=== PATIENT | female | born 1980 | race Two or more races ===

== ENCOUNTER 2018-05-27 12:08 | Emergency (ER) | payer MEDICAID ==
[~2018-05-27] VITALS: Ht 160 cm; Wt 72.6 kg
[2018-05-27] MEDS ORDERED: NKM (12:28)
[2018-05-27 12:59] LABS: APPEARANCE,URINE SLIGHTLY CLOUDY; BILIRUBIN, URINE NEGATIVE (NEGATIVE); COLOR,URINE PALE YELLOW; GLUCOSE, URINE (UA) NEGATIVE (NEGATIVE); KETONES,URINE NEGATIVE (NEGATIVE); LEUKOCYTE ESTERASE ,URINE 1+ (NEGATIVE); NITRITE,URINE POSITIVE (NEGATIVE); PH,URINE 7 (4.5-8.0); PROTEIN,URINE 3+ (NEGATIVE); UROBILINOGEN,URINE NORMAL MG/DL (0.0-1.0)
[2018-05-27 13:00] LABS: BASOPHILS % (AUTO) 0.5 % (0.0-2.0); EOSINOPHILS % (AUTO) 0.5 % (0.0-3.0); HEMATOCRIT 38.3 % (37.0-47.0); HEMOGLOBIN 12.7 G/DL (12.0-16.0); LYMPHOCYTES % (AUTO) 20.1 % (20.0-45.0); MEAN CORPUSCULAR VOLUME 86 FL (80-99); MONOCYTES % (AUTO) 5.9 % (1.0-10.0); NEUTROPHILS % (AUTO) 72.9 % (45.0-75.0); PLATELET COUNT 338 K/UL (150-450); RED BLOOD COUNT 4.43 M/UL (4.20-5.40); RED CELL DISTRIBUTION WIDTH 11.9 % (11.6-14.8); WHITE BLOOD COUNT 11.2 K/UL (4.8-10.8)
--- NOTE | 2018-05-27 13:04 | Emergency Room Report ---
History of Present Illness General Chief Complaint: General Complaint Source: Patient Present Illness HPI 38-year-old female with no significant past medical history presents today with 1 week of dizziness, and numbness in both hands and the back of her neck. Patient reports that she has been continuously bleeding since her menses started one month ago reports changing her pad multiple times during the day and clotting. Denies sexual activity. Patient reports intermittent palpitation , denies chest pain and sob. Denies abdominal pain, nausea vomiting, diarrhea constipation. denies vision changes patient does not take any medications daily basis patient further reports that she has increased anxiety denies SI denies and HI Allergies: Coded Allergies: PENICILLINS (Verified Allergy, Unknown, 05/27/18) Patient History Past Medical History: see triage record Pertinent Family History: none Last Menstrual Period: on period Now: No Immunizations: UTD Reviewed Nursing Documentation: PMH: Agreed; PSxH: Agreed Nursing Documentation-PMH Past Medical History: No History, Except For Hx Gastrointestinal Problems: Yes Review of Systems All Other Systems: negative except mentioned in HPI Physical Exam Vital Signs Date Time Temp Pulse Resp B/P (MAP) Pulse Ox O2 Delivery O2 Flow Rate FiO2 05/27/18 12:24 98.5 68 16 126/74 99 Room Air 98.4 Sp02 EP Interpretation: reviewed, normal General Appearance: normal inspection, well appearing, no apparent distress, alert, GCS 15 Head: normocephalic, atraumatic Eyes: bilateral eye normal inspection, bilateral eye PERRL ENT: normal ENT inspection, hearing grossly normal, normal pharynx, no angioedema Neck: normal inspection, full range of motion, supple Respiratory: normal inspection, chest non-tender, normal breath sounds, no rhonchi, no wheezing Cardiovascular #1: normal inspection, no edema, no murmur Cardiovascular #2: 2+ radial (R), 2+ radial (L) Gastrointestinal: normal inspection, non tender, soft Rectal: deferred Genitourinary: deferred Musculoskeletal: normal inspection, back normal Neurologic: normal inspection, alert, oriented x3 Psychiatric: normal inspection, judgement/insight normal, memory normal Skin: normal inspection, normal color, no rash, warm/dry Lymphatic: normal inspection, no adenopathy, axilla node tender (R) Medical Decision Making PA Attestation all dx and tx plans were reviewed and discussed with my supervising physician Dr. Avelar Diagnostic Impression: Primary Impression: UTI (urinary tract infection) Additional Impressions: Anxiety Irregular menstrual bleeding ER Course 38-year-old female with no significant past medical history presents today with 1 week of dizziness, and numbness in both hands and the back of her neck. Patient reports that she has been continuously bleeding since her menses started one month ago reports changing her pad multiple times during the day and clotting. Denies sexual activity. Patient reports intermittent palpitation , denies chest pain and sob. Denies abdominal pain, nausea vomiting, diarrhea constipation. denies vision changes patient does not take any medications daily basis patient further reports that she has increased anxiety denies SI denies and HI Ddx considered but are not limited to anemia, electrolyte imbalance, anxiety, irregular menses Vital signs: are WNL, pt. is afebrile H&PE are most consistent with UTI, anxiety ORDERS: EKG, UA, CBC, CMP ED INTERVENTIONS: None required at this time. DISCHARGE: At this time pt. is stable for d/c to home. Will provide printed patient care instructions, and any necessary prescriptions. Care plan and follow up instructions have been discussed with the patient prior to discharge. patient is a medication as directed and follow with primary care provider regarding anxiety also follow with the primary care provider regarding irregular menses Positive nitrites and leuks and UA, white blood cell elevated and CBC Rhythm Strip Diag. Results EP Interpretation: yes Rhythm: no PVC's, no ectopy, other - bradycardia Last Vital Signs Date Time Temp Pulse Resp B/P (MAP) Pulse Ox O2 Delivery O2 Flow Rate FiO2 05/27/18 12:24 98.5 68 16 126/74 99 Room Air 98.4 Disposition: HOME, SELF-CARE Condition: Stable Scripts Nitrofurantoin Monohyd/M-Cryst* (MACROBID 100 MG*) 100 Mg Capsule 100 MG ORAL EVERY 12 HOURS for 7 Days, #14 CAP Prov: Marylou Muñoz 05/27/18 Patient Instructions: Abnormal Uterine Bleeding, Generalized Anxiety Disorder, Urinary Tract Infection, [id number] Additional Instructions: follow with a primary care provider regarding anxiety assessment as tingling and numbness in hands and the back of neck is due to anxiety, take medication as directed for UTI also follow with a primary care provider for irregular menstruation Marylou Muñoz May 27, 2018 13:04
[2018-05-27 13:22] LABS: ANION GAP 9 mmol/L (5-15); BLOOD UREA NITROGEN 11 mg/dL (7-18); CALCIUM 9.8 MG/DL (8.5-10.1); CARBON DIOXIDE 26 MMOL/L (21-32); CHLORIDE 107 MMOL/L (98-107); CREATININE 0.8 MG/DL (0.55-1.30); POTASSIUM 3.6 MMOL/L (3.5-5.1); SODIUM 142 MMOL/L (136-145)
[2018-05-27 13:27] LABS: ALANINE AMINOTRANSFERASE 21 U/L (12-78); ALBUMIN 3.6 G/DL (3.4-5.0); ALBUMIN/GLOBULIN RATIO 0.9 (1.0-2.7); ALKALINE PHOSPHATASE 103 U/L (46-116); ASPARTATE AMINO TRANSFERASE 11 U/L (15-37); BILIRUBIN,TOTAL 0.5 MG/DL (0.2-1.0)
[2018-05-27] MEDS ORDERED: NITROFURANTOIN100 M2 ORAL (13:37)
[2018-05-27 13:45] VITALS: BP 131/84
[2018-05-27 13:46] VITALS: BP 126/74
--- NOTE | 2018-05-29 14:25 | Cardiology Report ---
APPROVED REPORT EKG Measurement Heart [id number] Sinus bradycardia Otherwise normal ECG
== END 2018-05-27 13:46 | disposition home or self-care (01) ==
LOC: EMR 12:48
DX: N39.0 Urinary tract infection, site not specified (principal); F41.9 Anxiety disorder, unspecified; N92.6 Irregular menstruation, unspecified; Z88.0 Allergy status to penicillin; R42 Dizziness and giddiness
CPT/HCPCS: 36415; 80053; 81001; 85025; 87086; 87181; 93005; 99283

== ENCOUNTER 2018-06-08 09:12 | Emergency (ER) | payer MEDICAID ==
[~2018-06-08] VITALS: Ht 162.6 cm; Wt 79.4 kg
[~2018-06-08 09:12] MED LIST: NITROFURANTOIN100 M2 ORAL; NKM
[2018-06-08 09:22] VITALS: BP 121/81
[2018-06-08] MEDS ORDERED: Lidocaine 2% Visc 15ml soln ORAL ONE (09:30)
[2018-06-08] MEDS ORDERED: Mylanta II UD 30ml ORAL ONE (09:30)
[2018-06-08] MEDS ORDERED: Dicyclomine HCl 10mg/5ml oral soln ORAL ONE (09:30)
--- NOTE | 2018-06-08 09:45 | Emergency Room Report ---
History of Present Illness General Chief Complaint: Abdominal Pain Source: Patient Present Illness HPI 38-year-old female presents ED complaining of abdominal pain with nausea and vomiting 2 days. Pain is epigastric, burning, 8 out of 10, nonradiating. Notes also episodes of vomiting. Denies chest pain or shortness of breath. Denies fevers or chills. Denies dysuria or hematuria. No other aggravating relieving factors. Denies any other associated symptoms Allergies: Coded Allergies: PENICILLINS (Verified Allergy, Unknown, 05/27/18) Patient History Past Medical History: GERD Past Surgical History: none Pertinent Family History: none Social History: Denies: smoking, alcohol use, drug use Now: No Immunizations: UTD Reviewed Nursing Documentation: PMH: Agreed; PSxH: Agreed Nursing Documentation-PMH Hx Gastrointestinal Problems: Yes Review of Systems All Other Systems: negative except mentioned in HPI Physical Exam Vital Signs Date Time Temp Pulse Resp B/P (MAP) Pulse Ox O2 Delivery O2 Flow Rate FiO2 06/08/18 09:15 98.7 73 18 121/81 98 Room Air 98.8 Sp02 EP Interpretation: reviewed, normal General Appearance: no apparent distress, alert, GCS 15, non-toxic, obese Head: normocephalic, atraumatic Eyes: bilateral eye normal inspection, bilateral eye PERRL ENT: hearing grossly normal, normal pharynx, no angioedema, normal voice Neck: full range of motion, supple/symm/no masses Respiratory: chest non-tender, lungs clear, normal breath sounds, speaking full sentences Cardiovascular #1: regular rate, rhythm, no edema Cardiovascular #2: 2+ carotid (R), 2+ carotid (L), 2+ radial (R), 2+ radial (L) , 2+ dorsalis pedis (R), 2+ dorsalis pedis (L) Gastrointestinal: normal bowel sounds, soft, non-distended, no guarding, no rebound, tenderness - epigastric Rectal: deferred Genitourinary: normal inspection, no CVA tenderness Musculoskeletal: back normal, gait/station normal, normal range of motion, non- tender Neurologic: alert, oriented x3, responsive, motor strength/tone normal, sensory intact, speech normal Psychiatric: judgement/insight normal, memory normal, mood/affect normal, no suicidal/homicidal ideation Reflexes: 3+ bicep (R), 3+ bicep (L), 3+ tricep (R), 3+ tricep (L), 3+ knee (R) , 3+ knee (L) Skin: normal color, no rash, warm/dry, well hydrated Lymphatic: no adenopathy Medical Decision Making Diagnostic Impression: Primary Impression: Gastritis Qualified Codes: K29.00 - Acute gastritis without bleeding ER Course Hospital Course 38-year-old F presents to ED with epigastric pain with N/V. differential diagnosis: gastritis, SBO, cholecystits Clinical course Patient placed on stretcher. On monitoring engineer. After initial history and physical I ordered labs, IV fluids, Zofran and pepcid Labs - minimal leukocytosis, no electrolyte abnormalities, LFTs normal, UA unremarkable Upon reassessment, patient states pain has improved. Discussed findings with patient. Safe for discharge with close outpatient follow-up. We will provide prescriptions I feel this is a highly complex case requiring extensive working including EKG/ Rhythm strip, Xray/CT/US, Blood/urine lab work, repeat exams while in ED, and administration of strong opiates/narcotics for pain control, admission to hospital or close patient follow up. Diagnosis - gastritis Stable and discharged to home with prescriptions for Zantac, zofran, bentyl. Followup with PMD. Return to ED if symptoms recur or worsen Labs Test 06/08/18 09:25 White Blood Count 11.8 K/UL (4.8-10.8) Red Blood Count 4.48 M/UL (4.20-5.40) Hemoglobin 13.1 G/DL (12.0-16.0) Hematocrit 38.8 % (37.0-47.0) Mean Corpuscular Volume 87 FL (80-99) Mean Corpuscular Hemoglobin 29.3 PG (27.0-31.0) Mean Corpuscular Hemoglobin Concent 33.8 G/DL (32.0-36.0) Red Cell Distribution Width 11.6 % (11.6-14.8) Platelet Count 360 K/UL (150-450) Mean Platelet Volume 6.5 FL (6.5-10.1) Neutrophils (%) (Auto) 75.7 % (45.0-75.0) Lymphocytes (%) (Auto) 18.0 % (20.0-45.0) Monocytes (%) (Auto) 5.2 % (1.0-10.0) Eosinophils (%) (Auto) 0.6 % (0.0-3.0) Basophils (%) (Auto) 0.6 % (0.0-2.0) Urine Color Pale yellow Urine Appearance Cloudy Urine pH 8 (4.5-8.0) Urine Specific Mackey 1.020 (1.005-1.035) Urine Protein Negative (NEGATIVE) Urine Glucose (UA) Negative (NEGATIVE) Urine Ketones Negative (NEGATIVE) Urine Blood 1+ (NEGATIVE) Urine Nitrite Negative (NEGATIVE) Urine Bilirubin Negative (NEGATIVE) Urine Urobilinogen Normal MG/DL (0.0-1.0) Urine Leukocyte Esterase 1+ (NEGATIVE) Urine RBC 2-4 /HPF (0 - 2) Urine WBC 2-4 /HPF (0 - 2) Urine Squamous Epithelial Cells Moderate /LPF (NONE/OCC) Urine Amorphous Sediment Moderate /LPF (NONE) Urine Bacteria Few /HPF (NONE) Urine HCG, Qualitative Negative (NEGATIVE) Sodium Level 139 MMOL/L (136-145) Potassium Level 3.7 MMOL/L (3.5-5.1) Chloride Level 106 MMOL/L (98-107) Carbon Dioxide Level 23 MMOL/L (21-32) Anion Gap 10 mmol/L (5-15) Blood Urea Nitrogen 9 mg/dL (7-18) Creatinine 0.8 MG/DL (0.55-1.30) Estimat Glomerular Filtration Rate > 60 mL/min (>60) Glucose Level 94 MG/DL (74-106) Calcium Level 9.2 MG/DL (8.5-10.1) Total Bilirubin 0.5 MG/DL (0.2-1.0) Aspartate Amino Transf (AST/SGOT) 13 U/L (15-37) Alanine Aminotransferase (ALT/SGPT) 20 U/L (12-78) Alkaline Phosphatase 103 U/L (46-116) Total Protein 7.5 G/DL (6.4-8.2) Albumin 3.6 G/DL (3.4-5.0) Globulin 3.9 g/dL Albumin/Globulin Ratio 0.9 (1.0-2.7) Lipase 135 U/L (73-393) Last Vital Signs Date Time Temp Pulse Resp B/P (MAP) Pulse Ox O2 Delivery O2 Flow Rate FiO2 06/08/18 09:22 98.8 73 18 121/81 98 Room Air 98.8 Status: improved Disposition: HOME, SELF-CARE Condition: Stable Scripts Dicyclomine Hcl* (DICYCLOMINE HCL*) 10 Mg Capsule 10 MG PO QID for 5 Days, CAP Prov: Ed Feldman MD 06/08/18 Ondansetron Odt* (ZOFRAN ODT*) 4 Mg Tab.rapdis 4 MG BC EVERY 6 HOURS PRN for Nausea & Vomiting, #20 TAB 0 Refills Prov: Ed Feldman MD 06/08/18 Ranitidine Hcl* (ZANTAC*) 150 Mg Tablet 150 MG ORAL TWICE A DAY, #30 TAB Prov: Ed Feldman MD 06/08/18 Referrals: NOT CHOSEN IPA/,REFERRING (PCP) Ed Feldman MD Jun 08, 2018 09:45
[2018-06-08 09:54] LABS: BASOPHILS % (AUTO) 0.6 % (0.0-2.0); EOSINOPHILS % (AUTO) 0.6 % (0.0-3.0); HEMATOCRIT 38.8 % (37.0-47.0); HEMOGLOBIN 13.1 G/DL (12.0-16.0); MEAN CORPUSCULAR VOLUME 87 FL (80-99); MONOCYTES % (AUTO) 5.2 % (1.0-10.0); NEUTROPHILS % (AUTO) 75.7 % (45.0-75.0); PLATELET COUNT 360 K/UL (150-450); RED BLOOD COUNT 4.48 M/UL (4.20-5.40); RED CELL DISTRIBUTION WIDTH 11.6 % (11.6-14.8); WHITE BLOOD COUNT 11.8 K/UL (4.8-10.8)
[2018-06-08 09:57] LABS: APPEARANCE,URINE CLOUDY; BILIRUBIN, URINE NEGATIVE (NEGATIVE); COLOR,URINE PALE YELLOW; GLUCOSE, URINE (UA) NEGATIVE (NEGATIVE); KETONES,URINE NEGATIVE (NEGATIVE); LEUKOCYTE ESTERASE ,URINE 1+ (NEGATIVE); NITRITE,URINE NEGATIVE (NEGATIVE); PH,URINE 8 (4.5-8.0); PROTEIN,URINE NEGATIVE (NEGATIVE); UROBILINOGEN,URINE NORMAL MG/DL (0.0-1.0)
[2018-06-08 10:02] LABS: ANION GAP 10 mmol/L (5-15); BLOOD UREA NITROGEN 9 mg/dL (7-18); CALCIUM 9.2 MG/DL (8.5-10.1); CARBON DIOXIDE 23 MMOL/L (21-32); CHLORIDE 106 MMOL/L (98-107); CREATININE 0.8 MG/DL (0.55-1.30); POTASSIUM 3.7 MMOL/L (3.5-5.1); SODIUM 139 MMOL/L (136-145)
[2018-06-08 10:06] LABS: ALANINE AMINOTRANSFERASE 20 U/L (12-78); ALBUMIN 3.6 G/DL (3.4-5.0); ALBUMIN/GLOBULIN RATIO 0.9 (1.0-2.7); ALKALINE PHOSPHATASE 103 U/L (46-116); ASPARTATE AMINO TRANSFERASE 13 U/L (15-37); BILIRUBIN,TOTAL 0.5 MG/DL (0.2-1.0)
[2018-06-08] MEDS ORDERED: DICYCLOMINE HCL10 MG PO (10:22)
[2018-06-08] MEDS ORDERED: ONDANSETRON ODT4 MG BC (10:22)
[2018-06-08] MEDS ORDERED: RANITIDINE HCL150 MG ORAL (10:22)
[2018-06-08 10:34] VITALS: BP 121/81
== END 2018-06-08 10:36 | disposition home or self-care (01) ==
LOC: EMR 09:33
DX: K29.70 Gastritis, unspecified, without bleeding (principal); Z88.0 Allergy status to penicillin
CPT/HCPCS: 36415; 80053; 81003; 81025; 83690; 85025; 96361; 96374; 96375; 99284; J2405; S0028